=== PATIENT | male | born 1965 | race Caucasian/White ===

== ENCOUNTER 2017-03-14 11:07 | Emergency (ER) | payer SELFPAY ==
[~2017-03-14] VITALS: Ht 182.9 cm; Wt 99.8 kg
[2017-03-14] MEDS ORDERED: KEPPRA500 M4 ORAL (15:33)
[2017-03-14 16:30] VITALS: BP 120/76
--- NOTE | 2017-03-15 07:49 | Emergency Room Report ---
History of Present Illness General Chief Complaint: Seizure Source: Patient, Medical Record, EMS Present Illness HPI Patient is a 51-year-old male presented after reported seizure. Patient states he has long history of seizure disorder. Patient states that he had been noncompliant with his Keppra. Patient had reportedly been off of his medications for several days. Patient reports having a seizure. He was brought in by EMS. Patient's history was limited by patient being a poor historian Allergies: Coded Allergies: UNABLE TO ASSESS (Unverified , 03/14/17) Patient History Reviewed Nursing Documentation: PMH: Agreed, PSxH: Agreed Nursing Documentation-PMH Past Medical History: No Stated History Review of Systems All Other Systems: limited - by poor cooperation Physical Exam Vital Signs Date Time Temp Pulse Resp B/P (MAP) Pulse Ox O2 Delivery O2 Flow Rate FiO2 03/14/17 10:26 98.1 115 18 120/76 100 Room Air Sp02 EP Interpretation: reviewed, normal General Appearance: normal inspection, well appearing, no apparent distress, alert, GCS 15, other, Chronically Ill Head: atraumatic ENT: normal ENT inspection, hearing grossly normal, normal voice, other - tongue deformity likely from prior poorly healed laceration Neck: normal inspection, full range of motion, supple, no bony tend Respiratory: normal inspection, lungs clear, normal breath sounds, no respiratory distress, no retraction, no wheezing Cardiovascular #1: regular rate, rhythm, no edema Gastrointestinal: normal inspection, normal bowel sounds, non tender, soft, no guarding, no hernia Genitourinary: no CVA tenderness Musculoskeletal: normal inspection, back normal, normal range of motion Neurologic: normal inspection, alert, oriented x3, responsive, residential caregiver III-XII nml as tested, motor strength/tone normal, speech normal Psychiatric: normal inspection, judgement/insight normal, mood/affect normal Skin: normal inspection, normal color, no rash Medical Decision Making Diagnostic Impression: Primary Impression: Seizure ER Course patient presented for seizure. Differential diagnosis included medication noncompliance, alcohol withdrawal, cysticercosis, electrolyte abnormality, mass lesion, or cranial hemorrhage. Patient's benign exam and does not appear to require any further imaging or laboratory testing at this time. Patient was orally loaded with Keppra. The patient was given prescription for Keppra. He is advised followup with his primary care physician in one to 2 days. Last Vital Signs Date Time Temp Pulse Resp B/P (MAP) Pulse Ox O2 Delivery O2 Flow Rate FiO2 03/14/17 16:30 98.1 80 18 120/76 100 Room Air Status: improved Disposition: HOME, SELF-CARE Condition: Stable Scripts Levetiracetam (KEPPRA) 500 Mg Tablet 500 MG ORAL EVERY 12 HOURS, #30 TAB 0 Refills Prov: Maninder Chavarria 03/14/17 Patient Instructions: Seizure, Adult Maninder Chavarria Mar 15, 2017 07:49
== END 2017-03-14 16:33 | disposition home or self-care (01) ==
LOC: EDBD 11:07 → EMR 11:36
DX: R56.9 Unspecified convulsions (principal); Z91.14 Patient's other noncompliance with medication regimen
CPT/HCPCS: 80299; 99283